=== PATIENT | male | born 1970 | race African-American/Black ===

== ENCOUNTER 2018-08-16 14:22 | Emergency (ER) | payer MEDICAID ==
[~2018-08-16] VITALS: Ht 172.7 cm; Wt 129.0 kg
[2018-08-16 19:42] VITALS: BP 157/102
== END 2018-08-16 19:40 | disposition home or self-care (01) ==
LOC: ER 14:22
DX: S09.8XXA Other specified injuries of head, initial encounter (principal); S01.01XA Laceration without foreign body of scalp, initial encounter; E11.9 Type 2 diabetes mellitus without complications; I10 Essential (primary) hypertension; W01.0XXA Fall on same level from slipping, tripping and stumbling without subsequent striking against object, initial encounter; Y93.89 Activity, other specified; Y92.89 Other specified places as the place of occurrence of the external cause
CPT/HCPCS: 12001; 99283